=== PATIENT | female | born 1965 | race Caucasian/White ===

== ENCOUNTER 2023-04-18 13:28 | Day surgery (SDC) | payer MEDICAID ==
[2023-04-18] VITALS (10 sets, daily range): BP systolic 120–134; BP diastolic 38–88; PULSE 82–97; RESP 14–16; TEMP 98.4; O2SAT 94–98
[~2023-04-18] VITALS: Ht 167.6 cm; Wt 86.9 kg
[2023-04-18] MEDS ORDERED: MIDAZolam 1mg/ml 10ml vial IV ONE (13:45)
[2023-04-18] MEDS ORDERED: normal saline 1000ml 1,000 ML IV SCH (13:45)
[2023-04-18] MEDS ORDERED: fentaNYL/PF 50MCG/1 ML 2ML syringe IV ONE (13:45)
[2023-04-18] MEDS ORDERED: PARO40TA4 (14:21)
[2023-04-18] MEDS ORDERED: MONT-40 PO (14:21)
[2023-04-18] MEDS ORDERED: ASPI-1397 (14:21)
[2023-04-18] MEDS ORDERED: FLUT1BLS16 INH (14:21)
[2023-04-18] MEDS ORDERED: METO-395 PO (14:21)
[2023-04-18] MEDS ORDERED: potassium otc (14:21)
[2023-04-18] MEDS ORDERED: PRAZ5CAP2 PO (14:21)
[2023-04-18] MEDS ORDERED: CHOL100017 PO (14:21)
[2023-04-18] MEDS ORDERED: ARIP30TA22 (14:21)
== END 2023-04-18 17:00 | disposition home or self-care (01) ==
LOC: SSTAY O 13:28 → EDSTATUS 17:30
PROVIDERS: ATTEND Student in an Organized Health Care Education/Training Program
DX: I08.1 Rheumatic disorders of both mitral and tricuspid valves (principal); J44.9 Chronic obstructive pulmonary disease, unspecified; I50.9 Heart failure, unspecified; I25.2 Old myocardial infarction
CPT/HCPCS: 93312; 93325; J2250; J3010; J7030; A4620